=== PATIENT | male | born 1965 | race Caucasian/White ===

== ENCOUNTER 2017-04-04 15:13 | Emergency (ER) | payer OTHER ==
[~2017-04-04] VITALS: Ht 177.8 cm; Wt 72.8 kg
[~2017-04-04 15:13] MED LIST: ACET-1256 PO; BUPR8SUB19 SL; LEVO1TAB35 PO
[2017-04-04 15:22] VITALS: TEMP 36.9; Ht 177.8 cm; Wt 72.8 kg
[2017-04-04 16:09] LABS: BASO % 0.4 %; BASO ABS # 0.02 K/uL (0-0.2); EOS % 1.3 %; EOS ABS # 0.07 K/uL (0-0.5); HEMATOCRIT 40.1 % (42-52); HEMOGLOBIN 14.2 g/dL (14.0-18.0); IG# 0.01 K/uL (0.00-0.02); LYMPH % 16.8 %; LYMPH ABS # 0.88 K/uL (1.2-3.4); MEAN CELL VOLUME 82.2 fL (80-100); MEAN CORPUSCULAR HEMOGLOBIN 29.1 pg (25-34); MEAN CORPUSCULAR HGB CONC 35.4 g/dl (32-36); MEAN PLATELET VOLUME 9.7 fL (7.4-10.4); MONO ABS # 0.42 K/uL (0.11-0.59); NEUT % 73.3 %; NEUT ABS # 3.85 K/uL (1.4-6.5); PLATELET COUNT 204 K/uL (130-400); RED CELL DISTRIBUTION WIDTH CV 13.1 % (11.5-14.5); RED CELL DISTRIBUTION WIDTH SD 39.8 fL (36.4-46.3); WHITE BLOOD COUNT 5.25 K/uL (4.8-10.8)
--- NOTE | 2017-04-04 16:12 | DIAGNOSTIC IMAGING REPORT ---
CHEST 2 VIEWS ROUTINE CLINICAL HISTORY: High fever/recently diagnosed with pneumonia COMPARISON STUDY: Chest radiograph April 01, 2017. FINDINGS: Lung volumes are normal. There is no pneumothorax or pleural effusion. Right middle lobe airspace opacity has increased since exam of April 01, 2017. No cavitation is identified by radiography. Cardiomediastinal silhouette is normal. There is no evidence for pulmonary edema. IMPRESSION: Moderate right middle lobe consolidation, increased since prior exam of April 01, 2017. This is suggestive of pneumonia. Post treatment radiographs to ensure resolution are recommended. Electronically signed by: Gato Guzman M.D. 04/04/2017 4:11 PM Dictated Date/Time: 04/04/2017 4:10 PM
[2017-04-04 16:26] LABS: CALCIUM 8.9 mg/dl (8.5-10.1); CREATININE 0.78 mg/dl (0.60-1.40); POTASSIUM 3.1 mmol/L (3.5-5.1)
[2017-04-04] MEDS ORDERED: IBUP-1050 PO (16:29)
[2017-04-04] MEDS ORDERED: POTASSIUM CHLORIDE 10 MEQ TABCR PO STA (16:51)
--- NOTE | 2017-04-04 16:59 | EMERGENCY ROOM VISIT NOTE ---
ED Visit Note First contact with patient: 15:39 The patient was seen and examined with Fide Yee PA-C. I agree with the history, physical and findings. Please see the note for disposition and details.
[2017-04-04] MEDS ORDERED: AZITHROMYCIN 250 MG TAB PO ONE (17:15)
[2017-04-04] MEDS ORDERED: AZIT250T PO (17:25)
--- NOTE | 2017-04-04 17:26 | EMERGENCY ROOM VISIT NOTE ---
History First contact with patient: 15:39 Chief Complaint: FEVER Stated Complaint: FEVER NECK PAIN History of Present Illness The patient is a 51 year old male who presents to the Emergency Room with complaints of persistent fever. The patient was diagnosed with pneumonia 3 days ago. He was placed on Levaquin and add albuterol inhaler. The patient states he is taking the Levaquin as prescribed but is not using the inhaler. He does not like the way that inhaler makes him feel. The patient states that every evening at around 7 PM he spikes a temp. last night he states it was 103. He states it comes down with Tylenol and Motrin. He has been alternating them every 3 hours. The patient denies any ear pain, sore throat or significant head congestion. The patient denies any neck pain. The patient states he has had minimal cough since being diagnosed with the pneumonia. Review of Systems 10 system review was performed and was negative unless stated otherwise history of present illness. Past Medical/Surgical History Medical Problems: (1) Pneumonia Surgical Problems: (1) History of appendectomy Family History Cancer Diabetes mellitus Heart disease Social History Smoking Status: Never Smoker Alcohol Use: occasionally Marital Status: Housing Status: lives alone Occupation Status: employed Current/Historical Medications Scheduled Buprenorphine Hcl (Subutex), 0.5-1 TAB SL DAILY Levofloxacin (Levaquin), 750 MG PO QD Scheduled PRN Acetaminophen (Tylenol), 1,000 MG PO Q6 PRN for Pain Ibuprofen (Advil), 400 MG PO Q6 PRN for Pain Physical Exam Vital Signs Date Time Temp Pulse Resp B/P (MAP) Pulse Ox O2 Delivery O2 Flow Rate FiO2 04/04/17 17:17 91 20 108/62 96 Room Air 04/04/17 15:22 36.9 98 16 154/85 96 Room Air Physical Exam PHYSICAL EXAM: Vital Signs were reviewed: Temperature 36.9, blood pressure 154/ 85, pulse rate 98, respiratory rate 16 reviewed Nurse's notes and agree. Oxygen saturation is 96 % on room air which is normal . GENERAL: 51-year-old male appears in no acute distress. MENTAL STATUS: Alert, oriented, coherent. EARS: Canals clear. TMs good light reflex, no erythema or fluid level noted. NOSE: Nasal mucosa with minimal erythema engorgement. PHARYNX: No erythema, no edema noted. No exudate noted. Airway is adequate. NECK: Supple, non-tender. No lymphadenopathy noted. LUNGS: Clear to auscultation without wheezes rales or rhonchi. CARDIAC: Regular rate and rhythm without murmur. SKIN: No rashes noted. Medical Decision & Procedures ER Provider Diagnostic Interpretation: CHEST 2 VIEWS ROUTINE CLINICAL HISTORY: High fever/recently diagnosed with pneumonia COMPARISON STUDY: Chest radiograph April 01, 2017. FINDINGS: Lung volumes are normal. There is no pneumothorax or pleural effusion. Right middle lobe airspace opacity has increased since exam of April 01, 2017. No cavitation is identified by radiography. Cardiomediastinal silhouette is normal. There is no evidence for pulmonary edema. IMPRESSION: Moderate right middle lobe consolidation, increased since prior exam of April 01, 2017. This is suggestive of pneumonia. Post treatment radiographs to ensure resolution are recommended. Electronically signed by: Gato Guzman M.D. 04/04/2017 4:11 PM Laboratory Results 04/04/17 15:58 Red Blood Count 4.88, Mean Corpuscular Volume 82.2, Mean Corpuscular Hemoglobin 29.1, Mean Corpuscular Hemoglobin Concent 35.4, Mean Platelet Volume 9.7, Neutrophils (%) (Auto) 73.3, Lymphocytes (%) (Auto) 16.8, Monocytes (%) (Auto) 8.0, Eosinophils (%) (Auto) 1.3, Basophils (%) (Auto) 0.4, Neutrophils # (Auto) 3.85, Lymphocytes # (Auto) 0.88, Monocytes # (Auto) 0.42, Eosinophils # (Auto) 0.07, Basophils # (Auto) 0.02 04/04/17 15:58 Test 04/04/17 15:58 White Blood Count 5.25 K/uL (4.8-10.8) Red Blood Count 4.88 M/uL (4.7-6.1) Hemoglobin 14.2 g/dL (14.0-18.0) Hematocrit 40.1 % (42-52) Mean Corpuscular Volume 82.2 fL (80-100) Mean Corpuscular Hemoglobin 29.1 pg (25-34) Mean Corpuscular Hemoglobin Concent 35.4 g/dl (32-36) Platelet Count 204 K/uL (130-400) Mean Platelet Volume 9.7 fL (7.4-10.4) Neutrophils (%) (Auto) 73.3 % Lymphocytes (%) (Auto) 16.8 % Monocytes (%) (Auto) 8.0 % Eosinophils (%) (Auto) 1.3 % Basophils (%) (Auto) 0.4 % Neutrophils # (Auto) 3.85 K/uL (1.4-6.5) Lymphocytes # (Auto) 0.88 K/uL (1.2-3.4) Monocytes # (Auto) 0.42 K/uL (0.11-0.59) Eosinophils # (Auto) 0.07 K/uL (0-0.5) Basophils # (Auto) 0.02 K/uL (0-0.2) RDW Standard Deviation 39.8 fL (36.4-46.3) RDW Coefficient of Variation 13.1 % (11.5-14.5) Immature Granulocyte % (Auto) 0.2 % Immature Granulocyte # (Auto) 0.01 K/uL (0.00-0.02) Anion Gap 8.0 mmol/L (3-11) Est Creatinine Clear Calc Drug Dose 116.7 ml/min Estimated GFR () 122.0 Estimated GFR (Non- 105.3 BUN/Creatinine Ratio 13.4 (10-20) Calcium Level 8.9 mg/dl (8.5-10.1) Medications Administered Medications (Trade) Dose Ordered Sig/Neyda Route Start Time Stop Time Status Last Admin Dose Admin Potassium Chloride (Klor-Con M10) 20 meq NOW STAT PO 04/04/17 16:51 04/04/17 16:52 DC 04/04/17 17:16 20 MEQ ED Course The patient was evaluated. The patient is EMR medication list were reviewed. The patient's chest x-ray from April 01 revealed a possible pneumonia versus atelectasis. His white count was normal. His blood cultures were negative. IV access was obtained. CBC and differential and renal profile was ordered. A repeat chest x-ray was ordered and interpreted by the radiologist and myself as above with right middle lobe pneumonia which has worsened since prior chest x- ray April 01.. Labs are reviewed. White count was normal. The patient's potassium was slightly low at 3.1 therefore he was given K-Dur 20 milliequivalents p.o. The patient was independently evaluated by Dr. Church who agrees with treatment plan. The patient's curb 65 score for pneumonia was 0. The patient was given Zithromax 500 mg all in the ER. The patient was discharged home in stable condition. Medical Decision The patient's blood cultures were normal and the patient does not appear toxic in any way. I do not feel that repeat blood cultures are indicated. I will repeat chest x-ray and routine labs to make sure things are improving, at least not worsening. The patient will be placed on a second antibiotic, Zithromax to cover atypical bacteria. The patient's curb 65 score does not indicate that the patient needs to be hospitalized and that he failed outpatient treatment. The patient will then continue to be treated as an outpatient. [place] Drug Monitoring Program Search Results: patient reviewed within database Medication Reconcilliation Current Medication List: was personally reviewed by me Blood Pressure Screening Patient's blood pressure: Elevated blood pressure Blood pressure disposition: Elevated BP felt to be situational Impression Primary Impression: Pneumonia Additional Impression: Hypokalemia Departure Information Dispostion Home / Self-Care Condition GOOD Prescriptions Azithromycin (Zithromax) 250 Mg Tab 250 MG PO DAILY for 4 Days, #4 TAB Prov: Meghan Yee PA-C 04/04/17 Referrals No Doctor, Assigned (PCP) Forms HOME CARE DOCUMENTATION FORM, IMPORTANT VISIT INFORMATION Patient Instructions ED Pneumonia Adult, Hypokalemia Ca, [facility] Additional Instructions Eat potassium rich foods daily such as banana or spinach. Continues Levaquin as prescribed. Take Zithromax as prescribed. Start the Zithromax tomorrow. Continue Tylenol and/or ibuprofen as needed for fever and body aches. Follow- up with your family doctor on Wednesday or Wednesday for recheck. If symptoms worsen in the interim, return to ER. Problem Qualifiers Primary Impression: Pneumonia Pneumonia type: due to unspecified organism Laterality: right Lung location : middle lobe of lung Qualified Codes: J18.1 - Lobar pneumonia, unspecified organism
[2017-04-04 17:32] VITALS: BP 138/75; PULSE 90; O2SAT 98
== END 2017-04-04 17:52 | disposition home or self-care (01) ==
LOC: C.EDB 15:15
DX: J18.9 Pneumonia, unspecified organism (principal); E87.6 Hypokalemia; Z90.49 Acquired absence of other specified parts of digestive tract; Z83.3 Family history of diabetes mellitus; Z82.49 Family history of ischemic heart disease and other diseases of the circulatory system